=== PATIENT | female | born 1965 | race Caucasian/White ===

== ENCOUNTER → 2016-08-01 | Outpatient (CLI) | payer BC | LOC: FIMAGING 08:20 | PROVIDERS: ATTEND Surgery | DX: K21.9 Gastro-esophageal reflux disease without esophagitis (principal); K44.9 Diaphragmatic hernia without obstruction or gangrene; K22.4 Dyskinesia of esophagus ==

== ENCOUNTER 2016-08-08 05:44 | Observation (INO) | payer BC ==
[2016-08-08] MEDS ORDERED: LIDOCAINE 1% 2 ML INJ ONE (05:54)
[2016-08-08] MEDS ORDERED: cefOXitin SODIUM 1 GM in D5W 50 ML IV ONE (06:00)
[2016-08-08] MEDS ORDERED: fentaNYL 250 MCG/5 ML INJ ONE (06:50)
[2016-08-08] MEDS ORDERED: PROPOFOL 200 MG/20 ML VIAL ONE (06:51)
[2016-08-08] MEDS ORDERED: ALBUTEROL 3 ML DEYVIAL ONE (07:04)
[2016-08-08] MEDS ORDERED: MIDAZOLAM 2 MG/2 ML VIAL ONE (07:15)
[2016-08-08] MEDS ORDERED: BUPIVACAINE 0.5% 30 ML SDV ONE ×2 (07:23→09:59)
[2016-08-08] MEDS ORDERED: ALBUTEROL 3 ML DEYVIAL IH ONE (07:30)
--- NOTE | 2016-08-08 09:56 | POSTOPPROG ---
Post Op Note Date of Operation: 08/08/16 Surgeon: Joe Christianson Pantograph Setter: Dr. France Anesthesiologist: Dr. Harding Anesthesia: GET(General Endotracheal) Pre-op Diagnosis: GERD, Hiatal Hernia Post-op Diagnosis: same Procedure: Robotic Fundoplication with HH repair Inf/Abcess present in the surg proc area at time of surgery?: No EBL: Minimal
[2016-08-08] MEDS ORDERED: ONDANSETRON 4 MG/2 ML VIAL IVP PRN (09:57)
[2016-08-08] MEDS ORDERED: LIDOCAINE 1% 30 ML SDV ONE (09:59)
[2016-08-08] MEDS ORDERED: ROPIVACAINE HCL 20 MG/10 ML INJ EP ONE (10:00)
[2016-08-08] MEDS ORDERED: DEXAMETHASONE 4 MG/ML VIAL ONE (10:00)
[2016-08-08] MEDS ORDERED: LR 1,000 ML IV SCH (10:00)
[2016-08-08] MEDS ORDERED: BACITRACIN 50,000 UNITS/10 ML SYR IRR ONE (10:00)
[2016-08-08] MEDS: HYDROmorphONE/DILAUDID 1 MG/ML SYR IVP PRN ×2 (10:51→13:29)
--- NOTE | 2016-08-08 14:05 | GOP ---
[f rep st] OPERATIVE REPORT DATE OF OPERATION: 08/08/2016 SURGEON: Larry Christianson MD MINE PATROL: Dr. France, whose presence was requested by me and medically necessary for the safe completion of the case. ANESTHESIA: General endotracheal anesthesia. PREOPERATIVE DIAGNOSIS: 1. Gastroesophageal reflux disease. 2. Hiatal hernia. POSTOPERATIVE DIAGNOSIS: 1. Gastroesophageal reflux disease. 2. Hiatal hernia. PROCEDURE PERFORMED: 1. Robotic partial fundoplication. 2. Robotic hiatal hernia repair. FINDINGS: The patient had a moderate hiatal hernia. No other lesions were identified. ESTIMATED BLOOD LOSS: 20 cc. INDICATIONS: This is a 50-year-old female with a history of reflux. Risks and benefits of procedure discussed with patient and her family, their questions were answered, and they wished to proceed. DESCRIPTION OF PROCEDURE: The patient was in the supine position initially. After the induction of adequate general endotracheal anesthesia, the patient was moved to the modified lithotomy position. The patient was then prepped and draped in the standard surgical fashion. Marcaine 0.5% was injected throughout the supraumbilical area for local anesthesia. An 8-mm incision was made and the abdominal wall was elevated. A Veress needle was inserted and after noting proper pressures, the abdomen was insufflated with carbon dioxide. An 8-mm trocar was placed and a camera followed. There was no apparent damage from trocar placement. Four more ports were placed, three 8- mm ports in the upper abdomen and one 5-mm port in the right mid abdomen. These were all placed under direct vision after injecting 0.5% Marcaine for local anesthesia. The robot was then docked without difficulty. Robotic instruments were then used to perform the dissection. The Harmonic scalpel was used to take down the gastrohepatic ligament. Dissection was then carried over the esophagus exposing the right augusitne. The dissection proceeded laterally and the superior portion of the esophagus and the left augustine were exposed. The vagus nerves were seen and preserved throughout the entire case. Next, the posterior window was opened using blunt dissection and the Harmonic scalpel. Once this window was achieved, attention was turned to the short gastrics. A significant portion of the short gastric vessels was taken down using a Harmonic scalpel. This freed up the fundus in its entirety. The mediastinal dissection was then performed. This was carefully performed using blunt dissection and minimal energy component. Once the entire visible portion of the esophagus was freed and the gastroesophageal junction returned to the abdomen, the repair of the hiatal hernia ensued. Interrupted sutures of 3-0 silk were used to approximate the hiatus posteriorly. Enough room was seen for the esophagus and an instrument tip. The fundus was then brought posteriorly to the esophagus and the wrap performed. A partial wrap was completed. The stomach was brought posterior to the esophagus and anchored to the crura. Sutures were then taken of the esophagus and stomach. The lateral aspect was then wrapped to complete the 270 degree wrap. This was a loose floppy wrap. No other lesions were identified at this time. Good hemostasis was noted. The robot was then undocked. Trocars were removed under direct vision. The pneumoperitoneum was allowed to escape. The wounds were thoroughly irrigated. The skin at all sites was closed using 4-0 Monocryl in a subcuticular suture. Wounds were sterilely dressed and the patient was returned to the supine position and extubated. The patient was then taken to the PACU in stable condition. COMPLICATIONS: None. DRAINS: None. ADDENDUM: /[id number]/MODL MTDD
[2016-08-08] MEDS: OXYCODONE/APAP 5/325 TAB PO PRN ×3 (16:06→22:08)
[2016-08-08] MEDS: FLUTICASONE/SALMETER 250/50MCG DISKUS IH SCH (21:30)
[2016-08-09 02:56] VITALS: PULSE 81
[2016-08-09] MEDS: OXYCODONE/APAP 5/325 TAB PO PRN ×3 (02:58→07:35)
[2016-08-09 07:22] VITALS: BP 103/71; RESP 16; TEMP 98; O2SAT 95
[2016-08-09] MEDS: FLUTICASONE/SALMETER 250/50MCG DISKUS IH SCH (08:18)
--- NOTE | 2016-08-09 08:51 | SOAPPROG ---
SOAP Progress Note Assessment/Plan: Assessment: s/p fundoplication, doing well. Discussed dietary/activity advancement. Signs/ symptoms of concern explained. Plan d/c on clears. Plan: 08/09/16 08:49 Subjective: Patient feels better, minimal pain. Ghada po, no N/V. Objective: Vital Signs Temp Pulse Resp BP Pulse Ox 36.7 C 81 16 103/71 95 08/09/16 07:20 08/09/16 07:20 08/09/16 07:20 08/09/16 07:20 08/09/16 07:20 08/08/16 08/09/16 08/10/16 05:59 05:59 05:59 Intake Total 2508 Output Total 2150 Balance 358 Alert, NAD RRR Abd soft, [employer] C/D/I ICD10 Worksheet Patient Problems: Problems Problem Status Onset Reflux esophagitis Acute - ICD10 Problem Qualifiers (1) Reflux esophagitis
[2016-08-09] MEDS ORDERED: DULoxetine 30 MG CAP PO SCH (09:00)
== END 2016-08-09 10:49 | disposition home or self-care (01) ==
LOC: INTOOBSV 05:44 → F3E 05:44
PROVIDERS: ADMIT Surgery; ATTEND Surgery
PROC: 8E0W4CZ Robotic Assisted Procedure of Trunk Region, Percutaneous Endoscopic Approach (ICD-10-PCS; principal; 2016-08-08 07:30)
PROC: 0DV44ZZ Restriction of Esophagogastric Junction, Percutaneous Endoscopic Approach (ICD-10-PCS; principal; 2016-08-08 07:30)
DX: K21.9 Gastro-esophageal reflux disease without esophagitis (principal); K44.9 Diaphragmatic hernia without obstruction or gangrene; J45.909 Unspecified asthma, uncomplicated
CPT/HCPCS: 43281; G0378; J0697; J1100; J1170; J2250; J2405; J2704; J2795; J3010

== ENCOUNTER 2016-08-09 14:17 | Emergency (ER) | payer BC ==
--- NOTE | 2016-08-09 14:15 | EDPHY ---
H & P Time Seen by Provider: 08/09/16 14:16 HPI/ROS: CHIEF COMPLAINT: Chest pain and trouble breathing HISTORY OF PRESENT ILLNESS: Patient had hiatal hernia and Quynh fundoplication surgery yesterday by Dr. Christianson. Today at about 2:00 p.m. she was at home resting when she had relatively rapid onset of central chest pain which radiates to her back and is worse with deep breath and associated with trouble breathing. Her pain is moderate but after EMS narcotics is almost gone. No coughing. She has asthma but this feels different. No leg swelling or fever. REVIEW OF SYSTEMS: Eye: no change in vision ENT: Mild sore throat but no change from discharge from hospital. Cardiac: HPI Pulmonary: HPI Abdomen: no vomiting, diarrhea, abdominal pain Musculoskeletal: no back pain Skin: no rash Neuro: no headache Constitutional: no fever : no urinary symptoms A comprehensive 10 point review of systems is otherwise negative aside from elements mentioned in the history of present illness. PAST MEDICAL HISTORY: Asthma, and surgery referenced in HPI. Social history: Non tobacco smoker. Family history: Positive for pulmonary embolism in her mother General Appearance: Alert and conversant, cooperative. Eyes: No scleral icterus. ENT, Mouth: Normal mucous membranes. Respiratory: Normal respiratory effort, breath sounds equal, lungs are clear to auscultation. Cardiovascular: Regular rate and rhythm. Gastrointestinal: Abdomen is soft and non tender. Neurological: Alert and oriented x3. Normally conversant. Face symmetric, normal movement and sensation in all extremities. Skin: Warm and dry, no rashes. I-STAT creatinine Musculoskeletal: No peripheral edema and no joint swelling. Psychiatric: Not agitated. Emergency Department course/MDM: Patient's initial heart rate is 1 006 and her oxygen saturation on room air is 85%. Combined with pleuritic chest pain and recent surgery my suspicion for pulmonary embolism is moderate to high. Plan for i-STAT and directly to CT angiography without D-dimer screening. 1433: I-STAT creatinine 0.7, CT angio discussed and consented, ordered at this time 1514: Results discussed, plan to discharge if adequate oxygenation on room air , Respiratory therapy consultation. 1530: Patient seen by respiratory therapy, lowest room air oxygen saturation around 89-90%, patient not short of breath, feels well, stable for discharge clinically. Constitutional: Initial Vital Signs Temperature (C) 36.9 C 05/10/17 14:26 Heart Rate 85 08/09/16 14:26 Respiratory Rate 22 H 08/09/16 14:26 Blood Pressure 107/66 08/09/16 14:26 O2 Sat (%) 85 L 08/09/16 14:26 O2 Delivery Mode Room Air Allergies/Adverse Reactions: No Known Allergies Allergy (Verified 08/09/16 14:26) Home Medications: Medication Instructions Recorded DULoxetine [Cymbalta 30 MG (*)] 30 mg PO DAILY 08/07/16 Fluticasone/Salmeter 250/50Mcg 1 puffs IH BID 08/07/16 [Advair 250/50 (*)] Percocet 5-325 mg Tablet 08/09/16 Medical Decision Making - Diagnostics EKG Interpretation: 12-lead EKG interpreted by me; official reading is in trace master. My interpretation is sinus rhythm with left atrial abnormality and nonspecific inferior T-wave flattening. Imaging Results: Imaging Impressions Chest/Thorax CTA 08/09/16 14:33 Impression: 1. No evidence for pulmonary embolus. 2. Postsurgical changes of hiatal hernia surgery with a small amount of pneumomediastinum. 3. Atelectasis and scarring posteriorly in both lung bases. Evidence of old granulomatous disease. Results called and discussed with Dr. Nato Greene, on August 09, 2016 at 1516 hours. Nusser no pulmonary embolism, 1512, basilar atelectasis, mediastinal postop changes. Differential Diagnosis: Differential diagnosis considered for chest pain including but not limited to myocardial ischemia, aortic dissection, pericarditis, pulmonary embolus, chest wall pain, pleural inflammation and pulmonary infectious causes. - Data Points Laboratory Results: Laboratory Results 08/09/16 14:25 08/09/16 14:25 08/09/16 08/09/16 08/09/16 14:25 14:25 14:25 WBC RBC Hgb POC Hgb 12.2 gm/dL L gm/dL (12.3-15.9) Hct POC Hct 36 % % (35.5-47.5) MCV MCH MCHC RDW Plt Count MPV Neut % (Auto) Lymph % (Auto) [place] % (Auto) Eos % (Auto) Baso % (Auto) Nucleat RBC Rel Count Absolute Neuts (auto) Absolute Lymphs (auto) Absolute Monos (auto) Absolute Eos (auto) Absolute Basos (auto) Absolute Nucleated RBC Immature Gran % Immature Gran # POC Sodium 139 mEq/L mEq/L (134-144) Sodium 137 mEq/L mEq/L (134-144) POC Potassium 3.5 mEq/L mEq/L (3.3-5.0) Potassium 3.7 mEq/L mEq/L (3.5-5.2) POC Chloride 99 mEq/L mEq/L (96-108) Chloride 101 mEq/L mEq/L (97-110) Carbon Dioxide 25 mEq/l mEq/l (22-31) Anion Gap 11 mEq/L mEq/L (8-16) POC BUN 7 mg/dL mg/dL (7-23) BUN 9 mg/dL mg/dL (7-23) Creatinine 0.7 mg/dL mg/dL (0.6-1.0) POC Creatinine 0.7 mg/dL mg/dL (0.6-1.2) Estimated GFR > 60 Glucose 137 mg/dL H mg/dL (70-100) POC Glucose 145 mg/dL H mg/dL (70-100) Calcium 8.4 mg/dL L mg/dL (8.5-10.4) Total Bilirubin 0.7 mg/dL mg/dL (0.1-1.4) Conjugated Bilirubin 0.4 mg/dL mg/dL (0.0-0.5) Unconjugated Bilirubin 0.3 mg/dL mg/dL (0.0-1.1) AST 36 IU/L IU/L (14-46) ALT 38 IU/L IU/L (9-52) Alkaline Phosphatase 42 IU/L IU/L (38-126) Troponin I < 0.012 ng/mL ng/mL (0-0.034) Total Protein 6.3 g/dL g/dL (6.3-8.2) Albumin 3.9 g/dL g/dL (3.5-5.0) Lipase 64.0 IU/L IU/L (23-300) Beta HCG, Qual NEGATIVE 08/09/16 14:25 WBC 9.34 10^3/uL 10^3/uL (3.80-9.50) RBC 3.74 10^6/uL L 10^6/uL (4.18-5.33) Hgb 11.7 g/dL L g/dL (12.6-16.3) POC Hgb Hct 34.8 % L % (38.0-47.0) POC Hct MCV 93.0 fL fL (81.5-99.8) MCH 31.3 pg pg (27.9-34.1) MCHC 33.6 g/dL g/dL (32.4-36.7) RDW 11.7 % % (11.5-15.2) Plt Count 195 10^3/uL 10^3/uL (150-400) MPV 10.4 fL fL (8.7-11.7) Neut % (Auto) 70.7 % % (39.3-74.2) Lymph % (Auto) 20.3 % % (15.0-45.0) [place] % (Auto) 7.0 % % (4.5-13.0) Eos % (Auto) 1.5 % % (0.6-7.6) Baso % (Auto) 0.3 % % (0.3-1.7) Nucleat RBC Rel Count 0.0 % % (0.0-0.2) Absolute Neuts (auto) 6.60 10^3/uL H 10^3/uL (1.70-6.50) Absolute Lymphs (auto) 1.90 10^3/uL 10^3/uL (1.00-3.00) Absolute Monos (auto) 0.65 10^3/uL 10^3/uL (0.30-0.80) Absolute Eos (auto) 0.14 10^3/uL 10^3/uL (0.03-0.40) Absolute Basos (auto) 0.03 10^3/uL 10^3/uL (0.02-0.10) Absolute Nucleated RBC 0.00 10^3/uL 10^3/uL (0-0.01) Immature Gran % 0.2 % % (0.0-1.1) Immature Gran # 0.02 10^3/uL 10^3/uL (0.00-0.10) POC Sodium Sodium POC Potassium Potassium POC Chloride Chloride Carbon Dioxide Anion Gap POC BUN BUN Creatinine POC Creatinine Estimated GFR Glucose POC Glucose Calcium Total Bilirubin Conjugated Bilirubin Unconjugated Bilirubin AST ALT Alkaline Phosphatase Troponin I Total Protein Albumin Lipase Beta HCG, Qual Medications Given: Discontinued Medications Sodium Chloride (Ns) 500 mls @ 0 mls/hr IV ONCE ONE PRN Reason: As Directed Stop: 08/09/16 14:24 Last Admin: 08/09/16 14:39 Dose: 500 mls Point of Care Test Results: 08/09/16 14:25 POC Sodium 139 POC Potassium 3.5 POC Chloride 99 POC BUN 7 POC Creatinine 0.7 POC Glucose 145 H Departure - Departure Disposition: Home, Routine, Self-Care Clinical Impression: Atelectasis of both lungs Chest pain Qualifiers: Chest pain type: unspecified Qualified Code(s): R07.9 - Chest pain, unspecified Condition: Good Instructions: Chest Pain (ED), Atelectasis (ED) Referrals: Stephanie Ballesteros MD [Primary Care Provider] - As per Instructions Joe Christianson MD [Medical Doctor] - As per Instructions
[2016-08-09] MEDS ORDERED: NS 500 ML IV ONE (14:23)
--- NOTE | 2016-08-09 14:30 | CPEKG ---
Heart Rate: 95 RR Interval: 632 P-R Interval: 180 QRSD Interval: 82 QT Interval: 356 QTC Interval: 448 P [place]: 62 QRS [place]: 62 T Wave [place]: -6 EKG Severity - BORDERLINE ECG - EKG Impression: SINUS RHYTHM EKG Impression: PROBABLE LEFT ATRIAL ABNORMALITY EKG Impression: BORDERLINE T ABNORMALITIES, INFERIOR LEADS Electronically Signed By: Nato Greene 09-Aug-2016 14:30:55
[2016-08-09] MEDS ORDERED: IOPAMIDOL (ISOVUE 370) 100 ML BTL IV ONE (14:40)
[2016-08-09 14:42] LABS: % IMMATURE GRANULYOCYTES 0.2 % (0.0-1.1); ABSOLUTE IMMATURE GRANULOCYTES 0.02 10^3/uL (0.00-0.10); ADD DIFF? NO; ADD MORPH? NO; ADD SCAN? NO; ATYPICAL LYMPHOCYTE FLAG 10 (0-99); FRAGMENT RBC FLAG 0 (0-99); HEMATOCRIT 34.8 % (38.0-47.0); HEMOGLOBIN 11.7 g/dL (12.6-16.3); LEFT SHIFT FLG 0 (0-99); LIPEMIA HEMOLYSIS FLAG 80 (0-99); MEAN CELL HEMOGLOBIN 31.3 pg (27.9-34.1); MEAN CELL HEMOGLOBIN CONCENTR. 33.6 g/dL (32.4-36.7); MEAN PLATELET VOLUME 10.4 fL (8.7-11.7); PLATELET CLUMPS FLAG 0 (0-99); PLATELET COUNT 195 10^3/uL (150-400); RED BLOOD CELL COUNT 3.74 10^6/uL (4.18-5.33); RED CELL DISTRIBUTION WIDTH 11.7 % (11.5-15.2)
[2016-08-09 14:56] LABS: ALANINE AMINOTRANSFERASE 38 IU/L (9-52); ALBUMIN 3.9 g/dL (3.5-5.0); ALKALINE PHOSPHATASE 42 IU/L (38-126); ANION GAP 11 mEq/L (8-16); ASPARTATE AMINOTRANSFERASE 36 IU/L (14-46); BILIRUBIN,TOTAL 0.7 mg/dL (0.1-1.4); BILIRUBIN-CONJUGATED 0.4 mg/dL (0.0-0.5); BILIRUBIN-UNCONJUGATED 0.3 mg/dL (0.0-1.1); CALCIUM 8.4 mg/dL (8.5-10.4); CARBON DIOXIDE 25 mEq/l (22-31); CHLORIDE 101 mEq/L (97-110); CREATININE 0.7 mg/dL (0.6-1.0); GLOMERULAR FILTRATION RATE > 60; GLUCOSE 137 mg/dL (70-100); POTASSIUM 3.7 mEq/L (3.5-5.2); SODIUM 137 mEq/L (134-144); TOTAL PROTEIN 6.3 g/dL (6.3-8.2)
[2016-08-09 15:07] LABS: TROPONIN I < 0.012 ng/mL (0-0.034)
[2016-08-09 15:34] VITALS: BP 97/61; PULSE 89; RESP 20; TEMP 97.3; O2SAT 91
== END 2016-08-09 15:43 | disposition home or self-care (01) ==
LOC: EDUNIT#
DX: J98.11 Atelectasis (principal); J45.909 Unspecified asthma, uncomplicated
CPT/HCPCS: 82947-QW; Q9967

== ENCOUNTER → 2017-07-12 | Outpatient (CLI) | payer BC | LOC: FIMAGING 08:13 | PROVIDERS: ATTEND Physician Assistant | DX: R10.9 Unspecified abdominal pain (principal) | CPT/HCPCS: A9537 ==

== ENCOUNTER 2017-07-23 07:32 | Observation (INO) | payer BC ==
[2017-07-23] MEDS ORDERED: BUPIVACAINE 0.5% 30 ML SDV ONE (07:34)
[2017-07-23] MEDS ORDERED: LR 1,000 ML IV ONE (07:52)
[2017-07-23 08:37] LABS: PLATELET COUNT 272 10^3/uL (150-400)
[2017-07-23] MEDS ORDERED: cefOXitin SODIUM 2 GM in STERILE WATER INJ 21 ML IV ONE (08:42)
--- NOTE | 2017-07-23 08:44 | PDHPUP ---
History & Physical Update H&P update statement: This history and physical update is based on an assessment of the patient which was completed after admission or registration (within 24 hours), but prior to the surgery/procedure. H&P update: H&P reviewed & patient examined, no change in patient's condition since H&P completed
[2017-07-23] MEDS ORDERED: CITRIC ACID/SODIUM CITRATE 30 ML UDCUP ONE (08:53)
[2017-07-23] MEDS ORDERED: MIDAZOLAM 2 MG/2 ML VIAL ONE (08:53)
[2017-07-23] MEDS ORDERED: fentaNYL 100 MCG/2 ML INJ ONE ×2 (08:58→11:45)
[2017-07-23] MEDS ORDERED: PROPOFOL/EMULSION 500 MG/50 ML BOTTLE IV ONE (08:58)
[2017-07-23] MEDS ORDERED: PROPOFOL 200 MG/20 ML VIAL ONE (09:00)
[2017-07-23] MEDS ORDERED: REMIFENTANIL HCL 1 MG VIAL ONE (09:02)
[2017-07-23] MEDS ORDERED: ONDANSETRON 4 MG/2 ML VIAL ONE (09:05)
[2017-07-23] MEDS ORDERED: LIDOCAINE 2% 5 ML SDV ONE (09:05)
[2017-07-23] MEDS ORDERED: KETOROLAC 30 MG/1 ML SDV ONE (09:05)
[2017-07-23] MEDS ORDERED: ROCURONIUM 50 MG/5 ML VIAL ONE ×2 (09:05→10:57)
[2017-07-23] MEDS ORDERED: DEXAMETHASONE 4 MG/ML VIAL ONE (09:05)
[2017-07-23] MEDS ORDERED: RANITIDINE 50 MG/2 ML VIAL ONE (09:05)
[2017-07-23] MEDS ORDERED: METOCLOPRAMIDE 10 MG/2 ML VIAL ONE (09:05)
--- NOTE | 2017-07-23 09:50 | PDANEPAE ---
ANE Past Medical History - Cardiovascular History Hx Hypertension: No Hx Arrhythmias: No Hx Chest Pain: No Hx Coronary Artery / Peripheral Vascular Disease: No Hx CHF / Valvular Disease: No Hx Palpitations: No - Pulmonary History Hx COPD: No Hx Asthma/Reactive Airway Disease: Yes Hx Recent Upper Respiratory Infection: No Hx Oxygen in Use at Home: No Hx Sleep Apnea: No Sleep Apnea Screening Result - Last Documented: Negative Pulmonary History Comment: asthma -managed w/Advair. rarely requires rescue inhaler. albuterol. 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 - Neurological & Psychiatric Hx Hx Neurological and Psychiatric Disorders: Yes Neurological / Psychiatric History Comment: depression,anxiety - Cancer History Hx Cancer: No - Congenital Disorder History Hx Congenital Disorders: No - GI History Hx Gastrointestinal Disorders: Yes Gastrointestinal History Comment: Hiatal hernia, Sorensen's esophagus. reflux - Other Health History Other Health History: none - Chronic Pain History Chronic Pain: No - Surgical History Prior Surgeries: EGD , amalia 2016 ANE Review of Systems Review of Systems: - Exercise capacity METS (RN): 4 METS ANE Patient History - Allergies Allergies/Adverse Reactions: No Known Allergies Allergy (Verified 07/20/17 15:50) - Home Medications Home Medications: Fluticasone/Salmeter 250/50Mcg [Advair 250/50 (*)] 08/07/16 [Last Taken ] Lunesta 07/20/17 [Last Taken 07/22/17] Protonix 07/20/17 [Last Taken 07/22/17] Desoxyn 5 mg PO 07/23/17 [Last Taken 07/22/17] - NPO status NPO Since - Liquids (Date): 07/23/17 NPO Since - Liquids (Time): 06:30 NPO Since - Solids (Date): 07/22/17 NPO Since - Solids (Time): 19:00 - Smoking Hx Smoking Status: Never smoked - Family Anes Hx Family Hx Anesthesia Complications: none ANE Labs/Vital Signs - Labs Result Diagrams: 07/23/17 08:25 - Vital Signs Blood Pressure: 102/70 Heart Rate: 82 Respiratory Rate: 16 O2 Sat (%): 94 Height: 167.64 cm Weight: 68.039 kg ANE Physical Exam - Airway Neck exam: FROM Mallampati Score: Class 1 Mouth exam: normal dental/mouth exam - Pulmonary Pulmonary: no respiratory distress, no rales or rhonchi, clear to auscultation - Cardiovascular Cardiovascular: regular rate and rhythym, no murmur, rub, or gallop - ASA Status ASA Status: II ANE Anesthesia Plan Anesthesia Plan: general endotracheal anesthesia Lines/Monitors: additional IV
[2017-07-23] MEDS ORDERED: ALBUTEROL 3 ML DEYVIAL IH PRN (10:17)
[2017-07-23] MEDS ORDERED: NALOXONE HCL 0.4 MG/ML INJ IVP PRN (10:17)
[2017-07-23] MEDS ORDERED: PROMETHAZINE HCL 25 MG/ML INJ IVP PRN (10:17)
[2017-07-23] MEDS ORDERED: METOCLOPRAMIDE 10 MG/2 ML VIAL IVP PRN (10:17)
[2017-07-23] MEDS ORDERED: LR 500 ML IV PRN (10:17)
[2017-07-23] MEDS ORDERED: MEPERIDINE 25 MG/ML SYR IVP PRN (10:17)
[2017-07-23] MEDS ORDERED: ONDANSETRON 4 MG/2 ML VIAL IVP PRN ×2 (10:17→11:28)
[2017-07-23] MEDS ORDERED: DEXAMETHASONE 4 MG/ML VIAL IVP PRN (10:17)
[2017-07-23] MEDS ORDERED: PHENYLEPHRINE HCL 100 MCG/ML SYR ONE (10:25)
[2017-07-23] MEDS ORDERED: ALBUMIN 5% 250 ML BOTTLE IV ONE (10:28)
[2017-07-23] MEDS ORDERED: SUGAMMADEX SODIUM 200 MG/2 ML VIAL IVP ONE (10:57)
[2017-07-23] MEDS ORDERED: HYDROCODONE/APAP 5/325 TAB PO PRN (11:28)
--- NOTE | 2017-07-23 11:30 | POSTOPPROG ---
Post Op Note Date of Operation: 07/23/17 Surgeon: Joe Christianson Higher Education Administrator: Dr. Biggs Anesthesiologist: Dr. Bishop Anesthesia: GET(General Endotracheal) Pre-op Diagnosis: GERD s/p fundoplication Post-op Diagnosis: same Procedure: DV Revision fundoplication Findings: Recurrent HH Inf/Abcess present in the surg proc area at time of surgery?: No Depth: Superfical (Skin SQ) EBL: Minimal
--- NOTE | 2017-07-23 11:39 | POSTANESTH ---
Post Anesthetic Evaluation Cardiovascular Status: Normal, Stable, Similar to Pre-Op Cond Respiratory Status: Normal, Stable, Similar to Pre-op Cond. Level of Consciousness/Mental Status: Can Participate in Eval Pain Control: Adequate, Prn Tx Ordered Nausea/Vomiting Control: Adequate, Prn Tx Ordered Complications Possibly Related to Anesthesia: None Noted
[2017-07-23] MEDS: fentaNYL 100 MCG/2 ML INJ IVP PRN ×3 (11:49→12:19)
[2017-07-23] MEDS: KETOROLAC 15 MG/1 ML SDV IVP SCH ×2 (13:38→22:12)
[2017-07-23] MEDS: HYDROmorphONE/DILAUDID 2 MG/ML INJ IVP PRN ×3 (13:40→22:13)
--- NOTE | 2017-07-23 13:49 | GOP ---
[f rep st] OPERATIVE REPORT DATE OF OPERATION: 07/23/2017 SURGEON: Larry Christianson MD BLUEPRINT TRIMMER: Ken Biggs MD, whose presence was requested by me and medically necessary for the safe and timely completion of the case. ANESTHESIA: General endotracheal anesthesia. ANESTHESIOLOGIST: Rebecca Bishop MD PREOPERATIVE DIAGNOSIS: Recurrent reflux and abdominal pain. POSTOPERATIVE DIAGNOSIS: Recurrent reflux and abdominal pain. PROCEDURE PERFORMED: 1. Diagnostic laparoscopy. 2. Robotic revision of fundoplication and repair of hiatal hernia. FINDINGS: The wrap appeared to be intact. A portion of the hiatal hernia repair appeared to be intact, however, there was a moderate hiatal hernia in residual. No other lesions were identified. ESTIMATED BLOOD LOSS: 20 cc. INDICATIONS: 51-year-old female with a history of abdominal pain. The patient underwent prior robotic fundoplication and hiatal hernia repair. Imaging demonstrated potential recurrence. Risks and benefits of the procedure were discussed with patient and her family, their questions were answered, they wished to proceed. DESCRIPTION OF PROCEDURE: Patient in supine position. After induction of adequate general endotracheal anesthesia, the patient prepped and draped in standard surgical fashion. 0.5% Marcaine was injected throughout the supraumbilical area for local anesthesia. An 8 mm incision was made with a #15 blade and the abdominal wall was elevated. After noting proper pressures, the abdomen was insufflated with carbon dioxide. An 8 mm trocar was passed. Camera followed. There was no apparent damage from trocar placement. Four more ports were placed, three 8 mm ports and one 5 mm port, all placed in the upper abdomen. These were placed under direct vision after injecting 0.5% Marcaine for local anesthesia. The abdomen was inspected. The gallbladder appeared to have minimal reactive inflammation, but was otherwise normal. No other lesions were noted. The liver was gently elevated and the area of the prior wrap was identified. There was a moderate amount of scar tissue and decision was made to proceed with robotic lysis and evaluation. The robot was docked and a liver retractor placed. Adhesions from the liver to the stomach and omentum were carefully taken down using blunt dissection and Harmonic Scalpel. This exposed the wrap well. The wrap could be identified and appeared to be intact with the sutures present. Dissection was then carried posteriorly to the crura. After careful dissection, the posterior of the wrap was gently moved aside and the crura were identified. These sutures were in place, however, there was still a moderate hiatal hernia in residual. This area was further dissected and no other lesions were noted. The remaining hiatal hernia was closed posteriorly using 2-0 silk sutures in interrupted fashion. This was carefully evaluated and enough room was seen for the esophagus and instrument tip. The anterior portion was assessed and no defects were seen there. Due to the difficulty with reflux, the wrap was reinforced. The superior aspect of the wrap was gently brought toward the anterior aspect of the esophagus with 2-0 silk sutures. The posterior aspect of the fundoplication was then also tacked to the crura using 2-0 silk. This appeared to result in a loose floppy wrap. Good hemostasis was noted throughout. The area was thoroughly irrigated and aspirated. No other lesions were identified. The robot was undocked. All ports were withdrawn under direct vision. Pneumoperitoneum was allowed to escape. The wounds were thoroughly irrigated and the skin was closed with 4-0 Monocryl in a subcuticular stitch. Wounds were sterilely dressed. The patient was extubated and taken to PACU in stable condition. COMPLICATIONS: None. DRAINS: None. /[id number]/MODL MTDD
--- NOTE | 2017-07-23 16:00 | ASMTCMCOM ---
CM Note CM Note Notes: Pt is s/p a hiatal hernia repair. She lives with her . Anticipate d/c with no CM needs but CM will be available should needs arise. Date Signed: 07/23/2017 03:59 PM Electronically Signed By:MERCEDES Landers
[2017-07-24] MEDS: KETOROLAC 15 MG/1 ML SDV IVP SCH (05:54)
--- NOTE | 2017-07-24 10:33 | SOAPPROG ---
SOAP Progress Note Assessment/Plan: Assessment: Plan: 07/24/17 10:32 s/p revision fundoplication, improving. D/c home, d/w patient and family, questions answered. Subjective: Patient feels better, pain markedly improved dejah po. Objective: Vital Signs Temp Pulse Resp BP Pulse Ox 36.3 C 82 16 101/73 97 07/24/17 09:01 07/24/17 09:01 07/24/17 09:01 07/24/17 09:01 07/24/17 09:01 Laboratory Results 07/23/17 08:25 07/23/17 07/24/17 07/25/17 05:59 05:59 05:59 Intake Total 1795 Output Total 420 Balance 1375 Alert, NAD RRR Abd soft,[employer] C/D/I ICD10 Worksheet Patient Problems: Problems Problem Status Onset Reflux esophagitis Acute
[2017-07-24 12:46] VITALS: BP 110/77
== END 2017-07-24 12:50 | disposition home or self-care (01) ==
LOC: FSGY 07:32 → F3E 11:27 → F1N 13:19
PROVIDERS: ADMIT Surgery; ATTEND Surgery
PROC: 0DQ40ZZ Repair Esophagogastric Junction, Open Approach (ICD-10-PCS; principal; 2017-07-23 08:45)
DX: K21.9 Gastro-esophageal reflux disease without esophagitis (principal); R10.9 Unspecified abdominal pain; K44.9 Diaphragmatic hernia without obstruction or gangrene; J45.909 Unspecified asthma, uncomplicated
CPT/HCPCS: 43332; G0378; J0694; J1100; J1170; J1885; J2250; J2370; J2405; J2704; J2765; J2780; J3010; P9041

== ENCOUNTER → 2017-09-28 | Outpatient (CLI) | payer BC | LOC: BMCIMAGING 12:16 | PROVIDERS: ATTEND Family Medicine | DX: M25.571 Pain in right ankle and joints of right foot (principal) ==

== ENCOUNTER → 2018-03-18 | Outpatient (CLI) | payer BC | LOC: FIMAGING 13:57 | PROVIDERS: ATTEND Internal Medicine | DX: Z12.31 Encounter for screening mammogram for malignant neoplasm of breast (principal) ==